=== PATIENT | female | born 1960 | race Caucasian/White ===

== ENCOUNTER → 2018-04-25 14:40 | Outpatient (CLI) | payer OTHER, SELFPAY ==
[2018-05-02 12:44] LABS: HPV Reflexed? NOT INDICATED
== END ==
PROVIDERS: Visit Provider Obstetrics & Gynecology
DX: Z12.4 Encounter for screening for malignant neoplasm of cervix (principal)
CPT/HCPCS: 88175; G0145

== ENCOUNTER → 2018-05-09 10:37 | Outpatient (CLI) | payer OTHER, SELFPAY ==
--- NOTE | 2018-05-09 10:39 | BI_ITS ---
MAMMOGRAPHY - BILATERAL SCREENING REASON FOR EXAM: Female, 57 years old. Routine annual screening examination. PERTINENT HISTORY: Non-contributory. TECHNIQUE: Digital bilateral breast maritza (3D mammographic acquisition) in the CC and MLO projections. 2-D mediolateral oblique (MLO) and craniocaudad (CC) views of both breasts were obtained. CAD: Full Field Digital Mammography with Computer Added Detection was performed. COMPARISON: Comparison is made with prior outside examination of September 21, 2016. FINDINGS: Breast Composition: The breasts are heterogeneously dense, which may obscure small masses. There are no dominant masses or suspicious calcifications. No other significant abnormalities are identified. There has been no significant change since the prior study. BI/SCREENING MAMM (CAD), BILAT IMPRESSION: Stable bilateral screening mammogram. Yearly follow-up mammogram recommended. (A) ASSESSMENT CATEGORY: BIRADS Category 1: Negative. A letter regarding these results will be sent to the patient by the facility within 30 days. Approximately 10% of breast cancers are not detected by mammography. A normal mammogram should not delay biopsy of a clinically suspicious abnormality. [id number] Electronically Signed: Nicolas Sevilla MD at 13:34 EDT Tel [phone], Service support ,
== END ==
PROVIDERS: Family Provider Family Medicine; PCP Family Medicine; Referring Provider Obstetrics & Gynecology; Visit Provider Obstetrics & Gynecology
DX: Z12.31 Encounter for screening mammogram for malignant neoplasm of breast (principal)
CPT/HCPCS: 77063; 77067

== ENCOUNTER → 2018-09-11 11:07 | Outpatient (CLI) | payer OTHER, SELFPAY ==
[2018-09-11 12:26] LABS: Erythrocyte Sedimentation Rate 6 mm/hr (0-30)
[2018-09-11 12:28] LABS: Hematocrit 40.8 % (37-47); Hemoglobin 12.9 g/dl (12.0-15.0); Mean Corp Hgb Conc 31.6 g/gl (32-36); Mean Corpuscular Hgb 30.6 pg (27.0-32.0); Mean Corpuscular Volume 96.9 fL (81-99); Mean Platelet Vol. 11.8 fl (6.2-12.0); Platelet Count 177 K/mm3 (150-450); RBC Distribution Width CV 12.6 % (11.6-14.6); RBC Distribution Width SD 44.2 fl (35.1-43.9); Red Blood Count 4.21 M/mm3 (4.2-5.4); White Blood Count 5.5 K/mm3 (4.4-11.0)
[2018-09-11 12:31] LABS: Scan Indicated on CBC? Y/N NO
[2018-09-11 12:51] LABS: ALB/GLOB Ratio 1.1 RATIO (0.9-2.4); AST(SGOT) 29 U/L (15-37); Alanine Aminotransfer ALT/SGPT 23 U/L (13-56); Albumin, Serum 4.1 g/dL (3.2-5.0); Alkaline Phosphatase 100 U/L (45-117); Anion Gap 9 (5-15); BUN 18 mg/dL (7-18); BUN/Creat Ratio 24.5 RATIO (10-20); CRP < 2.90 mg/L (0.0-3.0); Calcium,Total 9.4 mg/dL (8.5-10.1); Chloride 104 mmol/L (98-107); Creatinine, Serum 0.73 mg/dL (0.55-1.02); EST Glomerular Filtration Rate 86 mL/min (>60); Est Glom Filt Rate - Afr Amer 104 mL/min (>60); Globulin 3.6 g/dL (2.2-4.2); Glucose 91 mg/dL (74-106); Potassium 3.7 mmol/L (3.5-5.1); Protein, Total 7.7 g/dL (6.4-8.2); Sodium Level 142 mmol/L (136-145)
== END ==
PROVIDERS: Family Provider Family Medicine; PCP Family Medicine; Referring Provider Internal Medicine Gastroenterology; Visit Provider Internal Medicine Gastroenterology
DX: K50.90 Crohn's disease, unspecified, without complications (principal); K58.2 Mixed irritable bowel syndrome
CPT/HCPCS: 36415; 80053; 85027; 85652; 86140

== ENCOUNTER → 2019-01-23 14:19 | Outpatient (CLI) | payer OTHER, SELFPAY ==
--- NOTE | 2019-01-23 14:24 | CT_ITS ---
HISTORY: PASSING GAS VAGINALLY X 4 MONTHS, HX CROHNS, HX APPENDECTOMY, COLON RESECTION, CHOLECYSTECTOMY ADDITIONAL HISTORY: None provided. TECHNIQUE: CT images were obtained of the abdomen and pelvis with 75 ml of Isovue 300 IV contrast. Enteric and rectal contrast was given. A radiation dose optimization technique was used for this scan. Number of images including paperwork: [id number] COMPARISON: 08/09/2015 FINDINGS: LOWER THORAX: No consolidation or pleural effusion. LIVER: No concerning focal lesion. GALLBLADDER: No radiopaque calculi. BILE DUCTS: No significant biliary dilatation. SPLEEN: Unremarkable. PANCREAS: Unremarkable. ADRENAL GLANDS: Unremarkable. KIDNEYS/URETERS: Unremarkable. BOWEL: No bowel obstruction. No significant bowel wall thickening. No localized inflammation. APPENDIX: No evidence of appendicitis. FREE FLUID: No significant free fluid. FREE AIR: None. LYMPH NODES: No pathologic appearing adenopathy. PERITONEUM, RETROPERITONEUM AND MESENTERY: Otherwise unremarkable. VASCULATURE: Unremarkable as imaged. PELVIS: Unremarkable bladder. A small amount of air is seen in the vagina which is not particularly remarkable. No definite fistula to the vagina is seen. ABDOMINAL WALL: Unremarkable. OSSEOUS AND SOFT TISSUE STRUCTURES: No acute skeletal findings. CT/Abdomen/Pelvis WITH Contrast IMPRESSION: No acute abdominopelvic abnormality. No definite fistula to the vagina is seen. Individualized dose optimization techniques were used for this CT. at [id number] Reported and signed by: Christelle Hamm MD Electronically Signed: Christelle Hamm MD at 22:44 EDT Tel , Service support ,
[2019-01-23 14:41] LABS: CREATININE FINGERSTICK 0.7 mg/dL (0.55-1.02)
== END ==
PROVIDERS: Referring Provider Internal Medicine Gastroenterology; Visit Provider Internal Medicine Gastroenterology
DX: K50.90 Crohn's disease, unspecified, without complications (principal); L98.8 Other specified disorders of the skin and subcutaneous tissue
CPT/HCPCS: 74177; Q9967

== ENCOUNTER → 2019-05-19 11:48 | Outpatient (CLI) | payer OTHER, SELFPAY ==
--- NOTE | 2019-05-19 11:50 | BI_ITS ---
MAMMOGRAPHY - BILATERAL SCREENING REASON FOR EXAM: Female, 58 years old. Routine annual screening examination. PERTINENT HISTORY: Non-contributory. TECHNIQUE: Digital bilateral breast andrea (3D mammographic acquisition) in the CC and MLO projections. 2-D mediolateral oblique (MLO) and craniocaudad (CC) views of both breasts were obtained. CAD: Full Field Digital Mammography with Computer Added Detection was performed. COMPARISON: Comparison is made with prior study dated May 09, 2018. FINDINGS: Breast Composition: The breasts are heterogeneously dense, which may obscure small masses. There are no dominant masses or suspicious calcifications. No other significant abnormalities are identified. There has been no significant change since the prior study. BI/SCREEN MAMM (CAD) W/ANDREA BILAT IMPRESSION: Stable bilateral screening mammogram. Yearly follow-up mammogram recommended. (A) ASSESSMENT CATEGORY: BIRADS Category 1: Negative. A letter regarding these results will be sent to the patient by the facility within 30 days. Approximately 10% of breast cancers are not detected by mammography. A normal mammogram should not delay biopsy of a clinically suspicious abnormality. [id number] Electronically Signed: Nicolas Sevilla, at 13:16 EST , Service support ,
[2019-05-22 14:08] LABS: Age Gdln ACOG Testing 30-65 (.)
[2019-05-22 18:49] LABS: HPV APTIMA, High Risk Negative (Negative); HPV Reflexed? YES, CHARGE PATIENT
== END ==
PROVIDERS: Referring Provider Obstetrics & Gynecology; Visit Provider Obstetrics & Gynecology
DX: Z12.31 Encounter for screening mammogram for malignant neoplasm of breast (principal); Z12.4 Encounter for screening for malignant neoplasm of cervix; Z78.0 Asymptomatic menopausal state
CPT/HCPCS: 77063; 77067; 87624; 88175; G0145

== ENCOUNTER → 2019-08-25 08:00 | Outpatient (CLI) | payer OTHER, SELFPAY | PROVIDERS: PCP Family Medicine; Referring Provider Internal Medicine Gastroenterology; Visit Provider Internal Medicine Gastroenterology | DX: K50.90 Crohn's disease, unspecified, without complications (principal) | CPT/HCPCS: 36415 ==

== ENCOUNTER → 2020-02-25 14:05 | Outpatient (CLI) | payer OTHER, SELFPAY ==
[2020-02-25 15:09] LABS: EXAGEN MAILED SPECIMEN
[2020-02-25 18:24] LABS: Absolute Lymphocyte Count 0.97 X10^3/uL (0.83-4.51); Absolute Neutrophil Count 3.9 X10^3/uL (2.0-7.7); Basophil# 0.03 X10^3/uL; Basophil% 0.6 % (0-1); Eosinophil# 0.09 X10^3/uL; Eosinophils% 1.7 % (0-5); Hematocrit 41.5 % (37-47); Hemoglobin 12.7 g/dL (12.0-15.0); Lymphocyte # 0.97 X10^3/ul (4.0); Mean Corp Hgb Conc 30.6 g/dL (32-36); Mean Corpuscular Hgb 30.5 pg (27.0-32.0); Mean Corpuscular Volume 99.8 fL (81-99); Mean Platelet Vol. 12.5 fl (6.2-12.0); Monocyte# 0.36 X10^3/uL; Monocyte% 6.7 % (0-10); NRBC Flagged by Analyzer 0 % (0-5); Neutrophil # 3.91 X10^3/uL (2.7-7.7); Neutrophil % 72.6 % (47-70); Platelet Count 193 K/mm3 (150-450); RBC Distribution Width CV 12.3 % (11.6-14.6); RBC Distribution Width SD 45.1 fl (35.1-43.9); Red Blood Count 4.16 M/mm3 (4.2-5.4); White Blood Count 5.4 K/mm3 (4.4-11.0)
[2020-02-25 18:28] LABS: Color, Urine Yellow (Yellow); Glucose, Dipstick Normal (Normal); Ketone-Dipstick Negative (Negative); Leukocyte Esterase-Dipstick Negative /ul (Negative); Nitrite-Dipstick Negative (Negative); Occult Blood-Urine Negative /ul (Negative); Protein-Dipstick Negative (Negative); Specific Gravity, Urine 1.005 (1.002-1.030); Urine Bilirubin Dipstick Negative (Negative); Urine Clarity Clear (Clear); Urine Urobilinogen Normal (Normal)
[2020-02-25 18:37] LABS: Protein, Urine (Random) 8.2 mg/dL (<11.9); Protein:Creat Ratio 328 mg/g CRE (0-200)
[2020-02-25 18:43] LABS: ALB/GLOB Ratio 1.1 RATIO (0.9-2.4); AST(SGOT) 35 U/L (15-37); Alanine Aminotransfer ALT/SGPT 29 U/L (13-56); Alkaline Phosphatase 109 U/L (45-117); Anion Gap 2 (5-15); BUN 14 mg/dL (7-18); BUN/Creat Ratio 19.5 RATIO (10-20); CRP < 2.90 mg/L (0.0-3.0); Calcium,Total 8.8 mg/dL (8.5-10.1); Chloride 105 mmol/L (98-107); Creatinine, Serum 0.72 mg/dL (0.55-1.02); EST Glomerular Filtration Rate 88 mL/min (>60); Est Glom Filt Rate - Afr Amer 106 mL/min (>60); Globulin 3.8 g/dL (2.2-4.2); Glucose 80 mg/dL (74-106); Potassium 3.4 mmol/L (3.5-5.1); Protein, Total 7.8 g/dL (6.4-8.2); Sodium Level 139 mmol/L (136-145)
[2020-02-25 19:01] LABS: Erythrocyte Sedimentation Rate 10 mm/hr (0-30)
[2020-02-26 09:02] LABS: Hepatitis B Surface Antibody Non-Reactive; Hepatitis B Surface Antigen Non-Reactive (Nonreactive); Hepatitis C Antibody Non-Reactive (Nonreactive)
[2020-02-27 13:57] LABS: Hepatitis B Core AB IgM Negative (Negative)
== END ==
PROVIDERS: PCP Family Medicine; Referring Provider Internal Medicine Rheumatology; Visit Provider Internal Medicine Rheumatology
DX: M06.4 Inflammatory polyarthropathy (principal); R76.8 Other specified abnormal immunological findings in serum; K50.90 Crohn's disease, unspecified, without complications; N82.3 Fistula of vagina to large intestine; I10 Essential (primary) hypertension; I49.3 Ventricular premature depolarization; I49.1 Atrial premature depolarization; I34.0 Nonrheumatic mitral (valve) insufficiency; H81.23 Vestibular neuronitis, bilateral; Z79.899 Other long term (current) drug therapy; Z90.5 Acquired absence of kidney
CPT/HCPCS: 36415; 80053; 81002; 82570; 84156; 85025; 85652; 86140; 86705; 86706; 86803; 87340

== ENCOUNTER → 2020-05-21 | Outpatient (CLI) | payer OTHER, SELFPAY ==
[2020-05-26 14:01] LABS: HPV Reflexed? NOT INDICATED
== END | disposition home or self-care (01) ==
PROVIDERS: PCP Family Medicine; Visit Provider Student in an Organized Health Care Education/Training Program
DX: Z12.4 Encounter for screening for malignant neoplasm of cervix (principal)
CPT/HCPCS: 88175; G0145

== ENCOUNTER → 2020-06-10 10:00 | Outpatient (CLI) | payer OTHER, SELFPAY ==
[2020-06-10 12:18] LABS: Color, Urine Yellow (Yellow); Glucose, Dipstick Normal (Normal); Ketone-Dipstick Negative (Negative); Leukocyte Esterase-Dipstick Negative /ul (Negative); Nitrite-Dipstick Negative (Negative); Occult Blood-Urine Negative /ul (Negative); Protein-Dipstick Negative (Negative); Urine Bilirubin Dipstick Negative (Negative); Urine Clarity Clear (Clear); Urine Urobilinogen Normal (Normal)
[2020-06-10 12:19] LABS: Absolute Lymphocyte Count 1.27 X10^3/uL (0.83-4.51); Absolute Neutrophil Count 4.7 X10^3/uL (2.0-7.7); Basophil# 0.05 X10^3/uL; Basophil% 0.8 % (0-1); Eosinophil# 0.05 X10^3/uL; Eosinophils% 0.8 % (0-5); Hemoglobin 12.9 g/dL (12.0-15.0); Lymphocyte # 1.27 X10^3/ul (4.0); Lymphocyte % 19.5 % (19-41); Mean Corp Hgb Conc 31.5 g/dL (32-36); Mean Corpuscular Hgb 31.2 pg (27.0-32.0); Mean Platelet Vol. 12.7 fl (6.2-12.0); Monocyte# 0.48 X10^3/uL; Monocyte% 7.4 % (0-10); NRBC Flagged by Analyzer 0 % (0-5); Neutrophil # 4.65 X10^3/uL (2.7-7.7); Neutrophil % 71.3 % (47-70); Platelet Count 178 K/mm3 (150-450); RBC Distribution Width CV 12.7 % (11.6-14.6); RBC Distribution Width SD 46.2 fl (35.1-43.9); Red Blood Count 4.14 M/mm3 (4.2-5.4); White Blood Count 6.5 K/mm3 (4.4-11.0)
[2020-06-10 12:38] LABS: AST(SGOT) 26 U/L (15-37); Alanine Aminotransfer ALT/SGPT 22 U/L (13-56); Albumin, Serum 3.9 g/dL (3.2-5.0); Alkaline Phosphatase 87 U/L (45-117); Anion Gap 4 (5-15); BUN 18 mg/dL (7-18); Calcium,Total 9.2 mg/dL (8.5-10.1); Chloride 106 mmol/L (98-107); Creatinine, Serum 0.72 mg/dL (0.55-1.02); EST Glomerular Filtration Rate 88 mL/min (>60); Est Glom Filt Rate - Afr Amer 106 mL/min (>60); Globulin 3.9 g/dL (2.2-4.2); Glucose 86 mg/dL (74-106); Potassium 3.8 mmol/L (3.5-5.1); Protein, Total 7.8 g/dL (6.4-8.2); Protein, Urine (Random) 6.4 mg/dL (<11.9); Protein:Creat Ratio 173 mg/g CRE (0-200); Sodium Level 139 mmol/L (136-145)
== END ==
PROVIDERS: PCP Family Medicine; Referring Provider Internal Medicine Rheumatology; Visit Provider Internal Medicine Rheumatology
DX: M06.4 Inflammatory polyarthropathy (principal); R76.8 Other specified abnormal immunological findings in serum; K50.90 Crohn's disease, unspecified, without complications; N82.3 Fistula of vagina to large intestine; I10 Essential (primary) hypertension; I49.3 Ventricular premature depolarization; I34.0 Nonrheumatic mitral (valve) insufficiency; I49.1 Atrial premature depolarization; H81.23 Vestibular neuronitis, bilateral; Z90.5 Acquired absence of kidney; Z79.899 Other long term (current) drug therapy
CPT/HCPCS: 36415; 80053; 81002; 82570; 84156; 85025

== ENCOUNTER → 2020-06-24 14:46 | Outpatient (CLI) | payer OTHER, SELFPAY ==
--- NOTE | 2020-06-24 14:47 | BI_ITS ---
MAMMOGRAPHY - BILATERAL SCREENING REASON FOR EXAM: Female, 59 years old. Routine annual screening examination. PERTINENT HISTORY: Non-contributory. TECHNIQUE: Digital bilateral breast andrea (3D mammographic acquisition) in the CC and MLO projections. 2-D mediolateral oblique (MLO) and craniocaudad (CC) views of both breasts were obtained. CAD: Full Field Digital Mammography with Computer Added Detection was performed. COMPARISON: Comparison is made with prior examination dated 05/19/2019 and 05/09/2018. FINDINGS: Breast Composition: The breasts are heterogeneously dense, which may obscure small masses. There are no dominant masses or suspicious calcifications. No other significant abnormalities are identified. There has been no significant change since the prior study. BI/SCREEN MAMM (CAD) W/ANDREA BILAT IMPRESSION: Stable bilateral screening mammogram. Yearly follow-up mammogram recommended. (A) ASSESSMENT CATEGORY: BIRADS Category 1: Negative. A letter regarding these results will be sent to the patient by the facility within 30 days. Approximately 10% of breast cancers are not detected by mammography. A normal mammogram should not delay biopsy of a clinically suspicious abnormality. [id number] Electronically Signed: Nicolas Sevilla, at 15:44 EST , Service support ,
--- NOTE | 2020-06-24 14:54 | BD_ITS ---
STUDY: DUAL ENERGY X-RAY ABSORPTIOMETRY / DXA REASON FOR EXAM: Female, 59 years old. [employer] -- TAKES STEROID MEDS NEEDED FOR CROHN''S -- DOES MODERATE AMOUNT OF EXERCISE -- FAMILY HX OF OSTEO- MOTHER -- HX OF FOOT FX -- NO WINTER TECHNIQUE: Bone Mineral Density (BMD) measurements of lumbar spine and bilateral hips were obtained. COMPARISON: Comparison is made with prior study dated 02/04/2009. FINDINGS: Lumbar Spine (L1-L4): g/cm2 (0.972) / T-score (-1.7) / Z-score (-0.4) Findings are suggestive of osteopenia with a moderate fracture risk. Left Femur Total: g/cm2 (0.687) / T-score (-2.5) / Z-score (-1.5) Left Femoral Neck: g/cm2 (0.695) / T-score (-2.5) / Z-score (-1.2) Right Femur Total: g/cm2 (0.671) / T-score (-2.7) / Z-score (-1.7) Right Femoral Neck: g/cm2 (0.717) / T-score (-2.3) / Z-score (1.0) The T-Scores on the most recent prior examination were: Lumbar Spine (L1-L4): There has been worsening of bone density since the previous examination. Left Femur Total: which represents a worsening of 10.5%. Right Femur Total: which represents a worsening of 14.5%. BD/Dexa Bone Density Study IMPRESSION: The patient is considered osteoporotic as outlined below according to World Randall Organization (WHO) criteria with a high fracture risk. There has been worsening of bone density since the previous examination. Reference Information: The T-score is the number of standard deviations above or below the standard which is normal for young adults at their peak bone mineral density. The World Health Organization (WHO) interprets the T-scores as follows: Above -1 Normal bone density Between -1 and -2.5 Osteopenia Equal to / or below -2.5 Osteoporosis As a practical clinical guideline, osteopenia may be graded as follows: Mild -1 through -1.5 Moderate -1.6 through -2.0 Severe -2.1 through -2.4 The Z-score is the number of standard deviations above or below age-matched controls. A Z-score of less than -1.5 would be considered abnormal. References: 1. NIH Osteoporosis and Related Bone Diseases www osteo.org 2. International Society for Clinical Densitometry www iscd.org 3. National Osteoporosis Foundation www nof.org Electronically Signed: Nicolas Sevilla, at 15:49 EST , Service support ,
== END ==
PROVIDERS: PCP Family Medicine; Referring Provider Student in an Organized Health Care Education/Training Program; Visit Provider Student in an Organized Health Care Education/Training Program
DX: Z12.31 Encounter for screening mammogram for malignant neoplasm of breast (principal); M81.0 Age-related osteoporosis without current pathological fracture; K50.90 Crohn's disease, unspecified, without complications; Z78.0 Asymptomatic menopausal state
CPT/HCPCS: 77063; 77067; 77080

== ENCOUNTER → 2020-08-30 | Outpatient (CLI) | payer BC, SELFPAY ==
[2020-09-01 12:16] LABS: HPV APTIMA, High Risk Negative (Negative)
== END | disposition home or self-care (01) ==
LOC: LABSPEC 12:01
PROVIDERS: PCP Family Medicine; Visit Provider Student in an Organized Health Care Education/Training Program
DX: R87.615 Unsatisfactory cytologic smear of cervix (principal)
CPT/HCPCS: 87624; 88175; G0145

== ENCOUNTER → 2021-03-04 08:37 | Outpatient (CLI) | payer BC, SELFPAY ==
[2020-12-23 09:59] VITALS: BMI 22.2
--- NOTE | 2021-03-04 10:40 | NEURO ---
NCS and/or EMG Patient Report Ordering Doctor: Vini Haley DATE OF SERVICE: 03/04/21 Indication: Progressive burning sensation in both legs that has more recently begun to affect the hands. Evaluate for peripheral polyneuropathy. Findings: Nerve conduction studies were performed in the right upper and lower extremity. The right median motor study recording the abductor pollicis brevis showed a normal amplitude, normal distal latency and normal conduction velocity. The right ulnar motor study recording the abductor digiti minimi showed a normal amplitude, normal distal latency and normal conduction velocity. No conduction block or focal slowing was present across the elbow. The right median sensory response recording digit two showed a normal amplitude, latency and conduction velocity. The right ulnar sensory response recording digit five showed a normal amplitude, latency and conduction velocity. The right radial sensory response recording over the extensor snuff box showed a normal amplitude, latency and conduction velocity. The right peroneal motor study recording the extensor digitorum brevis showed a normal amplitude, normal distal latency and normal conduction velocity. No conduction block or focal slowing was present across the fibular neck. The right tibial motor study recording the abductor hallucis brevis showed a normal amplitude, normal distal latency and normal conduction velocity. Right sural sensory response showed a normal amplitude and conduction velocity. Right superficial peroneal sensory response showed a normal amplitude and conduction velocity. Needle EMG of the right upper and lower extremity muscles was performed. No denervation was present in any muscle. Motor unit morphology, activation, and recruitment patterns were normal. Examination of the left extremities was not performed given the symmetric nature of the patient's symptoms and the paucity of findings on the right side. Impression: There is no electrophysiologic evidence of a large fiber peripheral polyneuropathy. However, routine electrodiagnostic studies may be insensitive in detecting a peripheral neuropathy restricted to small fibers alone (pain, temperature and autonomic fibers). If such a condition is clinically suspected, additional testing (e.g. QSART, TST, skin biopsy) is recommended. Chetan Treadwell D.O.
== END ==
PROVIDERS: PCP Family Medicine; Referring Provider Psychiatry & Neurology Neurology; Visit Provider Psychiatry & Neurology Neurology
DX: G62.9 Polyneuropathy, unspecified (principal)
CPT/HCPCS: 95885; 95886; 95912

== ENCOUNTER → 2022-01-26 | Outpatient (CLI) | payer OTHER, SELFPAY ==
--- NOTE | 2022-01-26 11:55 | BI_ITS ---
MAMMOGRAPHY - BILATERAL SCREENING REASON FOR EXAM: Female, 61 years old. Routine annual screening examination. PERTINENT HISTORY: Non-contributory. TECHNIQUE: Digital bilateral breast andrea (3D mammographic acquisition) in the CC and MLO projections. 2-D mediolateral oblique (MLO) and craniocaudad (CC) views of both breasts were obtained. CAD: Full Field Digital Mammography with Computer Added Detection was performed. COMPARISON: Comparison is made with prior study dated 06/24/2020 and 05/19/2019. FINDINGS: Breast Composition: The breasts are heterogeneously dense, which may obscure small masses. There are no dominant masses or suspicious calcifications. No other significant abnormalities are identified. There has been no significant change since the prior study. BI/SCRN MAMM (CAD)W/ANDREA BILAT IMPRESSION: Stable bilateral screening mammogram. Yearly follow-up mammogram recommended. (A) ASSESSMENT CATEGORY: BIRADS Category 1: Negative. A letter regarding these results will be sent to the patient by the facility within 30 days. Approximately 10% of breast cancers are not detected by mammography. A normal mammogram should not delay biopsy of a clinically suspicious abnormality. [id number] Electronically Signed: Nicolas Sevilla MD at 12:30 EDT ,
== END | disposition home or self-care (01) ==
LOC: OPBI 11:48
PROVIDERS: PCP Family Medicine; Visit Provider Obstetrics & Gynecology
DX: Z12.31 Encounter for screening mammogram for malignant neoplasm of breast (principal)
CPT/HCPCS: 77063; 77067

== ENCOUNTER → 2022-06-29 | Outpatient (CLI) | payer OTHER, SELFPAY ==
--- NOTE | 2022-06-29 10:32 | BD_ITS ---
STUDY: DUAL ENERGY X-RAY ABSORPTIOMETRY / DXA REASON FOR EXAM: Female, 61 years old. Osteoporosis TECHNIQUE: Bone Mineral Density (BMD) measurements of lumbar spine and bilateral hips were obtained. COMPARISON: Comparison is made with prior study dated 06/24/2020. FINDINGS: Lumbar Spine (L1-L4): g/cm2 (0.808) / T-score (-2.2) / Z-score (-0.5) Findings are suggestive of osteopenia with a high fracture risk. Left Femur Total: g/cm2 (0.658) / T-score (-2.3) / Z-score (-1.2) Left Femoral Neck: g/cm2 (0.513) / T-score (-3.0) / Z-score (-1.6) Right Femur Total: g/cm2 (0.646) / T-score (-2.4) / Z-score (-1.3) Right Femoral Neck: g/cm2 (0.542) / T-score (-2.8) / Z-score (-1.3) The T-Scores on the most recent prior examination were: Lumbar Spine (L1-L4): There has been worsening of bone density since the previous examination. Left Femur Total: which represents an improvement of 4.4%. Right Femur Total: which represents an improvement of 5.2%. BD/Dexa Bone Density Study IMPRESSION: The patient is considered osteoporotic as outlined below according to World Randall Organization (WHO) criteria with a high fracture risk. There has been improvement of bone density since the previous examination. Reference Information: The T-score is the number of standard deviations above or below the standard which is normal for young adults at their peak bone mineral density. The World Health Organization (WHO) interprets the T-scores as follows: Above -1 Normal bone density Between -1 and -2.5 Osteopenia Equal to / or below -2.5 Osteoporosis As a practical clinical guideline, osteopenia may be graded as follows: Mild -1 through -1.5 Moderate -1.6 through -2.0 Severe -2.1 through -2.4 The Z-score is the number of standard deviations above or below age-matched controls. A Z-score of less than -1.5 would be considered abnormal. References: 1. NIH Osteoporosis and Related Bone Diseases www osteo.org 2. International Society for Clinical Densitometry www iscd.org 3. National Osteoporosis Foundation www nof.org Electronically Signed: Nicolas Sevilla MD at 9:33 EST ,
== END | disposition home or self-care (01) ==
LOC: OPBD 10:22
PROVIDERS: PCP Family Medicine; Referring Provider Obstetrics & Gynecology; Visit Provider Obstetrics & Gynecology
DX: M81.0 Age-related osteoporosis without current pathological fracture (principal)
CPT/HCPCS: 77080

== ENCOUNTER → 2023-03-15 | Outpatient (CLI) | payer OTHER, SELFPAY ==
--- NOTE | 2023-03-15 10:05 | BI_ITS ---
MAMMOGRAPHY - BILATERAL SCREENING REASON FOR EXAM: Female, 62 years old. Routine annual screening examination. PERTINENT HISTORY: Non-contributory. TECHNIQUE: Digital bilateral breast andrea (3D mammographic acquisition) in the CC and MLO projections. 2-D mediolateral oblique (MLO) and craniocaudad (CC) views of both breasts were obtained. CAD: Full Field Digital Mammography with Computer Added Detection was performed. COMPARISON: Comparison is made with prior study dated January 26, 2022 and June 24, 2020. FINDINGS: Breast Composition: The breasts are heterogeneously dense, which may obscure small masses. There are no dominant masses or suspicious calcifications. No other significant abnormalities are identified. There has been no significant change since the prior study. BI/SCRN MAMM (CAD)W/ANDREA BILAT IMPRESSION: Stable bilateral screening mammogram. Yearly follow-up mammogram recommended. (A) ASSESSMENT CATEGORY: BIRADS Category 1: Negative. A letter regarding these results will be sent to the patient by the facility within 30 days. Approximately 10% of breast cancers are not detected by mammography. A normal mammogram should not delay biopsy of a clinically suspicious abnormality. [id number] Electronically Signed: Nicolas Sevilla MD at 13:33 EDT ,
== END | disposition home or self-care (01) ==
PROVIDERS: PCP Family Medicine; Referring Provider Obstetrics & Gynecology; Visit Provider Obstetrics & Gynecology
DX: Z12.31 Encounter for screening mammogram for malignant neoplasm of breast (principal)
CPT/HCPCS: 77063; 77067

== ENCOUNTER → 2023-04-04 | Outpatient (CLI) | payer OTHER, SELFPAY ==
--- NOTE | 2023-04-04 10:15 | VUL_PTH ---
PATIENT: FAVIAN HALLMAN LOC: [facility] U#:[id number] AGE/SX: 62/F ROOM: RE04/04/[address]: Dr. Caitlin Veloz DO : 1960 BED: DIS: 04/04/2023 SPEC #: [id number] RECD: 04/04/23 11:41 STATUS: JANELLE LINARES #: [id number] DEVON: 04/04/23 10:[address]: Caitlin Veloz DEPT: SURGICAL PATHOLOGY RECD BY: Shayy Burrows ENTERED: 04/04/23 13:12 SP TYPE: VULVA BX OTHR DR: Dr. Abby Solomon MD Tissues: Vulva, NOS Procedures: Surgery Specimen Level IV HEADER OPERATION: Vulvar biopsy PRE-OP DIAGNOSIS: Vulvar pain TISSUE SUBMITTED: Left labial majora MICROSCOPIC DIAGNOSIS Left labial majora, biopsy: A piece of squamous mucosa with acanthosis, hyperkeratosis and reactive changes. Negative for dysplasia or malignancy. See comment. SJ:leonard 04/05/2023 COMMENT Clinical correlation and appropriate follow up are necessary. Case has been reviewed in consultation with Dr. Connor who concurs with the above diagnosis. IDC:AM MICROSCOPIC DESCRIPTION Slides are reviewed. GROSS DESCRIPTION Received is one container labeled with the patient's name and not further designated. The specimen consists of a piece of ibarra-white skin measuring 1.0 x 0.2 x 0.1 cm. The entire specimen is submitted in one cassette. / SUSY:leonard 04/04/2023 TC:5 CPT: [id number]
== END | disposition home or self-care (01) ==
LOC: LABSPEC 11:45
PROVIDERS: PCP Family Medicine; Referring Provider Obstetrics & Gynecology; Visit Provider Obstetrics & Gynecology
DX: N90.4 Leukoplakia of vulva (principal)
CPT/HCPCS: 88305

== ENCOUNTER → 2024-03-03 | Outpatient (CLI) | payer MEDICARE, OTHER, SELFPAY ==
[2024-03-03 18:02] LABS: Hematocrit 40.9 % (37-47); Hemoglobin 12.9 g/dL (12.0-15.0); Mean Corp Hgb Conc 31.5 g/dL (32-36); Mean Corpuscular Hgb 29.9 pg (27.0-32.0); Mean Corpuscular Volume 94.7 fL (81-99); Platelet Count 186 K/mm3 (150-450); RBC Distribution Width CV 12.1 % (11.6-14.6); RBC Distribution Width SD 42.4 fl (35.1-43.9); Red Blood Count 4.32 M/mm3 (4.2-5.4); White Blood Count 5.9 K/mm3 (4.4-11.0)
[2024-03-03 18:55] LABS: ALB/GLOB Ratio 1.1 RATIO (0.9-2.4); AST(SGOT) 25 U/L (15-37); Alanine Aminotransfer ALT/SGPT 19 U/L (13-56); Alkaline Phosphatase 113 U/L (45-117); Anion Gap 8 (5-15); BUN 17 mg/dL (7-18); BUN/Creat Ratio 22.5 RATIO (10-20); CRP < 2.90 mg/L (0.0-3.0); Calcium,Total 9.5 mg/dL (8.5-10.1); Chloride 106 mmol/L (98-107); Creatinine, Serum 0.76 mg/dL (0.55-1.02); EST Glomerular Filtration Rate 82 mL/min (>60); Est Glom Filt Rate - Afr Amer 99 mL/min (>60); Globulin 3.5 g/dL (2.2-4.2); Glucose 91 mg/dL (74-106); Potassium 3.6 mmol/L (3.5-5.1); Protein, Total 7.5 g/dL (6.4-8.2); Sodium Level 141 mmol/L (136-145)
== END | disposition home or self-care (01) ==
LOC: MTLAB 14:44
PROVIDERS: PCP Family Medicine; Referring Provider Internal Medicine Gastroenterology; Visit Provider Internal Medicine Gastroenterology
DX: R10.11 Right upper quadrant pain (principal)
CPT/HCPCS: 36415; 80053; 85027; 86140

== ENCOUNTER → 2024-03-31 | Outpatient (CLI) | payer MEDICARE, OTHER, SELFPAY ==
--- NOTE | 2024-03-31 10:24 | BI_ITS ---
MAMMOGRAPHY - BILATERAL SCREENING REASON FOR EXAM: Female, 63 years old. Routine annual screening examination. PERTINENT HISTORY: Non-contributory. TECHNIQUE: Digital bilateral breast andrea (3D mammographic acquisition) in the CC and MLO projections. 2-D mediolateral oblique (MLO) and craniocaudad (CC) views of both breasts were obtained. CAD: Full Field Digital Mammography with Computer Added Detection was performed. COMPARISON: Comparison is made with prior study to March 15, 2023 and January 26, 2022. FINDINGS: Breast Composition: The breasts are heterogeneously dense, which may obscure small masses. There are no dominant masses or suspicious calcifications. No other significant abnormalities are identified. There has been no significant change since the prior study. BI/SCRN MAMM (CAD)W/ANDREA BILAT IMPRESSION: Stable bilateral screening mammogram. Yearly follow-up mammogram recommended. (A) ASSESSMENT CATEGORY: BIRADS Category 1: Negative. A letter regarding these results will be sent to the patient by the facility within 30 days. Approximately 10% of breast cancers are not detected by mammography. A normal mammogram should not delay biopsy of a clinically suspicious abnormality. [id number] Electronically Signed: Nicolas Sevilla MD at 12:10 EDT ,
== END | disposition home or self-care (01) ==
LOC: OPBI 10:24
PROVIDERS: PCP Family Medicine; Referring Provider Obstetrics & Gynecology; Visit Provider Obstetrics & Gynecology
DX: Z12.31 Encounter for screening mammogram for malignant neoplasm of breast (principal)
CPT/HCPCS: 77063; 77067

== ENCOUNTER → 2024-10-06 | Outpatient (CLI) | payer MEDICARE, OTHER, SELFPAY ==
--- NOTE | 2024-10-06 13:49 | CT_ITS ---
PROCEDURE: ABDOMEN/PELVIS WITH CONTRAST 10/06/2024 REASON FOR EXAM: CROHNS Abdominal pain. TECHNIQUE: Abdomen and pelvis CT with intravenous contrast. Coronal and Sagittal reconstruction series were provided. PATIENT PREPARATION: Per protocol ORAL CONTRAST TYPE: None. CONTRAST: Isovue 370 VOLUME: 104mL One or more dose reduction techniques were used (e.g., Automated exposure control, adjustment of the mA and/or kV according to patient size, use of iterative reconstruction technique. RADIATION DOSE SUMMARY: CTDlvol: 12 mGy DLP: 1003.33 mGycm COMPARISON: Comparison is made with prior study dated January 23, 2019. FINDINGS: Lung bases: Unremarkable. Liver: Normal size. No mass. Gallbladder: Surgically absent. Spleen: Normal size. Pancreas: Normal size without evidence of mass surrounding inflammation or ductal dilation. Adrenals: Unremarkable Kidneys: Normal renal sizes. No hydronephrosis. Bladder: Mildly distended urinary bladder. Reproductive Organs: Normal uterine size and contour. Ovaries are unremarkable. Bowel: There is evidence of anastomosis at the level of the cecum. Once again, there is fluid-filled/fecal material filled proximal cecum. This measures 5.2 cm in transverse dimension. This is essentially unchanged. Appendix: The appendix is not identified. There is no inflammatory process identified in the right lower quadrant to suggest appendicitis. Lymph nodes: Unremarkable. Vasculature: The abdominal aorta and IVC are normal. Peritoneum / Retroperitoneum: Unremarkable Bones: Unremarkable CT/Abdomen/Pelvis WITH Contrast IMPRESSION: Status post anastomosis at the level of the cecum with stable mild dilatation o f the cecum with fluid and fecal material. Stable examination. Reading Location: [place] [id number]
== END | disposition home or self-care (01) ==
LOC: CT 13:47
PROVIDERS: PCP Family Medicine; Referring Provider Internal Medicine Gastroenterology; Visit Provider Internal Medicine Gastroenterology
DX: K50.90 Crohn's disease, unspecified, without complications (principal)
CPT/HCPCS: 74177; Q9967

== ENCOUNTER → 2025-04-02 | Outpatient (CLI) | payer MEDICARE, OTHER, SELFPAY ==
--- NOTE | 2025-04-02 10:15 | BI_ITS ---
EXAM: SCRN MAMM (CAD)W/ANDREA BILAT DATE: 04/02/2025 CLINICAL HISTORY: F, Age 64 y/o , SCREEN FOR BREAST CANCER TECHNIQUE: Procedure Code: [id number] Modality: MG Procedure: SCRN MAMM (CAD)W/ANDREA BILAT COMPARISON: Prior exam(s) were compared FINDINGS: TISSUE DENSITY: The breasts are heterogeneously dense, which may obscure small masses. Bilateral Breast Mammographic Findings: No suspicious masses, calcifications or other abnormalities are identified. BI/SCRN MAMM (CAD)W/ANDREA BILAT IMPRESSION: No mammographic evidence of malignancy in either breast. OVERALL FINAL ASSESSMENT BI-RADS 1: NEGATIVE. RECOMMENDATION: Routine annual follow-up in 1 Year Additional Recommendation none A letter with findings and recommendations will be mailed to the patient. Reading Location: [id number]
--- OUTSIDE RECORDS SUMMARY | 2025-04-02 10:45 | XMS RPT_ITS | CCD ---
Author Organization [facility] Care Team Providers Care Healthcare Or Medical Name Role Phone Dr. Abby Irby Primary Care Provider [phone] Dr. Abby Irby Referring Provider Dr. Caitlin Veloz Attending Provider [phone] SUREKHA DUMONT, DR CESPEDES Attending Unavailable SUREKHA DUMONT, DR CESPEDES Primary Care Unavailable SUREKHA DUMONT, DR CESPEDES Attending Unavailable SUREKHA DUMONT, DR CESPEDES Primary Care Unavailable SUREKHA DUMONT, DR CESPEDES Attending Unavailable SUREKHA DUMONT, DR CESPEDES Primary Care Unavailable TERRI CRUZ MD Attending Unavailable SUREKHA DUMONT, DR CESPEDES Primary Care Unavailable DORA SELBY Attending Debbie lavinia IRBY MD, DR CESPEDES Primary Care Unavailable DORA SELBY Attending Debbie lavinia IRBY MD, DR CESPEDES Primary Care Unavailable Dr. Abby Irby Primary Care Provider [phone] Dr. Abby Irby Referring Provider JOHNNY Canales Attending Provider [phone] Dr. Abby Irby MD Primary Care Provider [phone] Dr. Tiburcio Pollock MD Attending Provider Dr. Tiburcio Pollock MD Referring Provider Alberto IRBY Consulting Unavailable Alberto IRBY Attending Unavailable Alberto IRBY Admitting Unavailable Alberto IRBY Primary Care Unavailable PROVIDER, UNKNOWN Consulting Unavailable PROVIDER, UNKNOWN Consulting Unavailable PROVIDER, UNKNOWN Consulting Unavailable Alberto IRBY Consulting Unavailable DARELL SUAREZ MD Admitting Unavailable DARELL SUAREZ MD Primary Care Unavailable DARELL SUAREZ MD Attending Unavailable PROVIDER, UNKNOWN Consulting Unavailable PROVIDER, UNKNOWN Consulting Unavailable PROVIDER, UNKNOWN Consulting Unavailable Alberto IRBY Consulting Unavailable Alberto IRBY Referring Unavailable CAITLIN FLORIAN DO Admitting Unavaila ble CAITLIN FLORIAN DO Primary Care Unavaila ble CAITLIN FLORIAN DO Attending Unavaila ble PROVIDER, UNKNOWN Consulting Unavailable PROVIDER, UNKNOWN Consulting Unavailable PROVIDER, UNKNOWN Consulting Unavailable DARELL SUAREZ MD Admitting Unavailable DARELL SUAREZ MD Primary Care Unavailable DARELL SUAREZ MD Attending Unavailable Alberto IRBY Consulting Unavailable PROVIDER, UNKNOWN Consulting Unavailable PROVIDER, UNKNOWN Consulting Unavailable PROVIDER, UNKNOWN Consulting Unavailable Caitlin Veloz Referring UnavailAbby Verduzco Primary Care Unavailable Caitlin Veloz Attending UnavailAbby Verduzco Primary Care Unavailable Tiburcio Pollock Attending Unavailable Tiburcio Pollock Referring Unavailable Caitlin Veloz Attending UnavailAbby Verduzco Primary Care Unavailable Abby Irby Referring Unavailable Allergies Allergy Classification Reported Allergen(s) Allergy Type Date of Onset Reaction(s) Facility (4 sources) Acetaminophen Drug Allergy 05-05-20 [facility] (4 sources) Azithromycin Drug Allergy 05-05-20 [facility] (4 sources) HYDROcodone Drug Allergy 05-05-20 hallucinations [facility] (4 sources) Ibuprofen Drug Allergy 05-05-20 [facility] (4 sources) Sulfamethoxazole Drug Allergy 05-05-20 [facility] (4 sources) Trimethoprim Drug Allergy 05-05-20 [facility] (1 source) Acetaminophen / HYDROcodone Drug Allergy [facility] (1 source) Azithromycin Drug Allergy [facility] (1 source) Ibuprofen Drug Allergy [facility] (1 source) Acetaminophen Drug Allergy 03-31-20 [facility] (1 source) Azithromycin Drug Allergy 03-31-20 [facility] (1 source) HYDROcodone Drug Allergy 03-31-20 [facility] (1 source) Ibuprofen Drug Allergy 03-31-20 [facility] (1 source) Sulfamethoxazole Drug Allergy 03-31-20 [facility] (1 source) Trimethoprim Drug Allergy 03-31-20 [facility] Medications Current Medications Medication Drug Class(es) Dates Sig (Normalized) Sig (Original) acetaminophen 500 mg oral tablet (4 sources) Start: 11-10-2020 take 1 tablet by mouth every six hours as needed Acetaminophen (Tylenol Extra Strength) 500 mg tablet Active 500 mg PO EVERY 6 HOURS as needed November 10, 2020 12:00am aluminum hydroxide 160 mg / magnesium carbonate 105 mg chewable tablet (4 sources) Start: 11-10-2020 Aluminum Hydrox-Magnesium Carb (Gaviscon Extra Strength) 160-105 mg tablet,chewable Active 2 {tbl} PO TWICE A DAY as needed November 10, 2020 12:00am amLODIPine 2.5 mg oral tablet (5 sources) Dihydropyridine Calcium Channel José Antonio Start: 03-31-2024 take 1 tablet by mouth once daily Amlodipine (Norvasc) 2.5 mg tablet Active 2.5 mg PO daily March 31, 2024 12:00am Start: 11-10-2020 End: 03-09-2022 take 1 tablet by mouth once daily Amlodipine 2.5 mg tablet Discontinued 2.5 mg PO DAILY November 10, 2020 12:00am March 09, 2022 1:47pm biotin 5 mg oral capsule (4 sources) Start: 11-10-2020 take 1 capsule by mouth once daily Biotin 5 mg capsule Active 5 mg PO DAILY November 10, 2020 12:00am budesonide 3 mg delayed release oral capsule (7 sources) Corticosteroid Start: 05-05-2021 End: 03-09-2022 take 3 capsules by mouth once daily as needed Budesonide 3 mg capsule,delayed,ex tend.release Active 9 mg PO DAILY as needed March 09, 2022 1:47pm Start: 05-05-2021 End: 03-09-2022 take 9 mg by mouth once daily Budesonide Active 9 MG P O DAILY March 09, 2022 1:47pm calcium carbonate 1500 mg oral tablet (4 sources) Start: 11-10-2020 take 1 tablet by mouth twice daily Calcium Carbonate 600 mg calcium (1,500 mg) tablet Active 600 mg PO TWICE A DAY November 10, 2020 12:00am cholecalciferol 0.025 mg oral capsule (4 sources) Vitamin D Start: 11-10-2020 take 1 capsule by mouth twice daily Cholecalciferol (Vitamin D3) (Vitamin D3) 25 mcg (1,000 unit) capsule Active 25 ug PO TWICE A DAY November 10, 2020 12:00am fexofenadine hydrochloride 180 mg oral tablet (7 sources) Histamine-1 Receptor Antagonist Start: 11-10-2020 End: 03-09-2022 take 1 tablet by mouth once daily as needed Fexofenadine (Diann Allergy) 180 mg tablet Active 180 mg PO DAILY as needed March 09, 2022 1:48pm fluconazole 150 mg oral tablet (3 sources) Azole Antifungal Start: 03-09-2022 take 1 tablet by mouth once daily Fluconazole (Diflucan) 150 mg tablet Active 150 mg PO Every 3 Days 2 March 09, 2022 12:00am take 3 days apart lisinopril 10 mg oral tablet (8 sources) Angiotensin Converting Enzyme Inhibitor Start: 03-31-2024 take 4 tablets by mouth once daily Lisinopril 10 mg tablet Active 40 mg PO DAILY March 31, 2024 9:44am Start: 03-09-2022 End: 03-31-2024 take 2 tablets by mouth once daily Lisinopril 10 mg tablet Discontinued 20 mg PO DAILY March 09, 2022 1:48pm March 31, 2024 9:44am Start: 03-09-2022 take 20 mg by mouth once daily Lisinopril Active 20 MG PO DAILY March 09, 2022 1:48pm Start: 11-10-2020 End: 03-09-2022 take 1 tablet by mouth once daily Lisinopril 10 mg tablet Discontinued 10 mg PO DAILY November 10, 2020 12:00am March 09, 2022 1:49pm pantoprazole 40 mg delayed release oral tablet (3 sources) Proton Pump Inhibitor Start: 03-09-2022 take 1 tablet by mouth once daily Pantoprazole (Protonix) 40 mg tablet,delayed release (DR/EC) Active 40 mg PO DAILY March 09, 2022 12:00am Completed/Discontinued Medications Medication Drug Class(es) Dates Sig (Normalized) Sig (Original) 0.8 ml adalimumab 50 mg/ml prefilled syringe (4 sources) Tumor Necrosis Factor José Antonio Start: 11-10-2020 End: 03-09-2022 Adalimumab (Humira) 40 mg/0.8 mL syringe kit Discontinued 0 SC .COMPLEX November 10, 2020 12:00am March 09, 2022 1:47pm inject one - 40 mg/0.8 mL syringe every 2 weeks subcut Start: 11-10-2020 End: 03-09-2022 Adalimumab (Humira) 40 mg/0. 8 mL syringe kit Discontinued 0 SC .COMPLEX November 10, 2020 12:00am March 09, 2022 1:47pm inject one - 40 mg/0.8 mL syringe every 2 weeks subcut famotidine 40 mg oral tablet (4 sources) Histamine-2 Receptor Antagonist Start: 11-15-2020 End: 03-09-2022 Famotidine 40 mg tablet Discontinued NMA PO November 15, 2020 12:00am March 09, 2022 1:48pm Start: 11-15-2020 End: 03-09-2022 Famotidine Discontinued EACH PO November 15, 2020 12:00am March 09, 2022 1:48pm flecainide acetate 50 mg oral tablet (3 sources) Antiarrhythmic Start: 03-09-2022 End: 03-31-2024 take 1 tablet by mouth every twelve hours Flecainide 50 mg tablet Discontinued 50 mg PO Q12H March 09, 2022 12:00am March 31, 2024 9:43am lidocaine 25 mg/ml / prilocaine 25 mg/ml topical cream (4 sources) Antiarrhythmic, Amide Local Anesthetic Start: 06-09-2021 End: 03-09-2022 Lidocaine-Prilocai ne 2.5-2.5 % cream Discontinued 1 NMA TOPICAL .QID as needed for pain June 09, 2021 1:00am March 09, 2022 1:48pm Start: 06-09-2021 End: 03-09-2022 Lidocaine-Prilocaine Discont inued 1 APPLIC TOPICAL .QID June 09, 2021 1:00am March 09, 2022 1:48pm Mecobal-Levomefolat Ca-B6 Ph os (Foltanx) 3-35-2 mg tablet (8 sources) Start: 06-09-2021 End: 03-09-2022 Mecobal-Levomefolat Ca-B6 Ph os (Foltanx) 3-35-2 mg tablet Discontinued 1 {tbl} PO TWICE A DAY June 09, 2021 2:37pm March 09, 2022 1:48pm Start: 06-09-2021 End: 03-09-2022 take 1 tablet by mouth twice daily Mecobal-Levomefolat Ca-B6 Phos (Foltanx) 3-35-2 mg tablet Discontinued 1 TABLET PO TWICE A DAY 60 June 09, 2021 2:37pm March 09, 2022 1:48pm Start: 06-09-2021 End: 03-09-2022 take 1 tablet by mouth twice daily Mecobal-Levomefolat Ca-B6 Phos (Foltanx) 3-35-2 mg tablet Discontinued 1 TABLET PO TWICE A DAY 60 June 09, 2021 1:37pm March 09, 2022 12:48pm Start: 06-09-2021 take 1 tablet by ashli th twice daily Mecobal-Levomefolat Ca-B6 Phos (Foltanx) 3-35-2 mg tablet Active 1 TABLET PO TWICE A DAY 60 June 09, 2021 2:37pm Start: 12-23-2020 End: 06-09-2021 Mecobal-Levomefolat Ca-B6 Ph os (Foltanx) 3-35-2 mg tablet Discontinued 1 {tbl} PO TWICE A DAY 60 December 23, 2020 12:00am June 09, 2021 2:42pm Start: 12-23-2020 End: 06-09-2021 take 1 tablet by mouth twice daily Mecobal-Levomefolat Ca-B6 Phos (Foltanx) 3-35-2 mg tablet Discontinued 1 TABLET PO TWICE A DAY 60 December 22, 2020 11:00pm June 09, 2021 1:42pm Start: 12-23-2020 End: 06-09-2021 take 1 tablet by mouth twice daily Mecobal-Levomefolat Ca-B6 Phos (Foltanx) 3-35-2 mg tablet Discontinued 1 TABLET PO TWICE A DAY 60 December 23, 2020 12:00am June 09, 2021 2:42pm 24 hr metoprolol succinate 100 mg extended release oral tablet (4 sources) beta-Adrenergic José Antonio Start: 11-10-2020 End: 03-09-2022 take 1 tablet by mouth once daily Metoprolol Succinate 100 mg tablet extended release 24 hr Discontinued 100 mg PO DAILY November 10, 2020 12:00am March 09, 2022 1:48pm Problems Active Problems Problem Classification Problem Date Documented Da te Episodic/Chronic Abdominal pain (2 sources) Female genital organ symptoms; Translations: [Pelvic and perineal pain] 07-27-2022 Episodic Asthma (4 sources) Asthma; Translations: [Unspecified asthma, uncomplicated] 11-10-2020 Chronic Cardiac dysrhythmias (1 source) Atrial fibrillation; Translations: [Unspecified atrial fibrillation] Chronic Deficiency and other anemia (4 sources) Anemia; Translations: [Anemia, unspecified] 11-10-2020 Episodic Esophageal disorders (4 sources) Gastroesophageal reflux disease; Translations: [Gastro-esophageal reflux disease without esophagitis] 11-10-2020 Chronic Essential hypertension (6 sources) Hypertensive disorder; Translations: [Essential (primary) hypertension] Onset: 3 Chronic Genitourinary symptoms and ill-defined conditions (3 sources) Female stress incontinence; Translations: [Stress incontinence (female) (male)] 01-17-2023 Chronic Comment on above: poly montelongo ires to trial this for 3 months, if no improvement would consider PFPT Heart valve disorders (4 sources) Mitral valve prolapse; Translations: [Nonrheumatic mitral (valve) prolapse] 11-10-2020 Chronic Nutritional deficiencies (2 sources) Vitamin D deficiency, unspecified; Translations: [Vitamin D deficiency, unspecified] Onset: 2 Chronic Nutritional deficiencies (4 sources) Vitamin deficiency; Translations: [Vitamin deficiency, unspecified] 11-10-2020 Episodic Osteoarthritis (4 sources) Arthritis; Translations: [Unspecified osteoarthritis, unspecified site] 11-10-2020 Chronic Osteoporosis (4 sources) Osteoporosis; Translations: [Age-related osteoporosis without current pathological fracture] 11-15-2020 Chronic Other aftercare (2 sources) Encounter for therapeutic drug level monitoring; Translations: [Encounter for therapeutic drug level monitoring] Onset: 3 Episodic Other and ill-defined heart disease (4 sources) Heart disease; Translations: [Heart disease, unspecified] 11-10-2020 Chronic Other ear and sense organ disorders (4 sources) Hearing loss; Translations: [Unspecified hearing loss, unspecified ear] 11-10-2020 Chronic Other female genital disorders (1 source) Vulvodynia; Translations: [Vulvodynia, unspecified] 04-04-2023 Chronic Other gastrointestinal disorders (4 sources) History of Crohns disease; Translations: [Personal history of other diseases of the digestive system] 11-10-2020 Episodic Other nervous system disorders (4 sources) Carpal tunnel syndrome; Translations: [Carpal tunnel syndrome, unspecified upper limb] 11-10-2020 Chronic Other nervous system disorders (4 sources) Neuropathy; Translations: [Polyneuropathy, unspecified] 11-10-2020 Chronic Other nervous system disorders (4 sources) Polyneuropathy; Translations: [Polyneuropathy, unspecified] 06-09-2021 Chronic Other nervous system disorders (4 sources) Pain in limb - multiple; Translations: [Paresthesia of skin] 11-15-2020 Episodic Other screening for suspected conditions (not mental disorders or infectious disease) (3 sources) Encounter for screening for lipoid disorders; Translations: [Encounter for screening mammogram for malignant neoplasm of breast] Onset: Episodic Other skin disorders (2 sources) Folliculitis; Translations: [Follicular disorder, unspecified] 01-17-2023 Episodic Other skin disorders (1 source) Follicular disorder, unspecified; Translations: [Other specified diseases of hair and hair follicles] 01-17-2023 Episodic Other upper respiratory disease (4 sources) Seasonal allergy; Translations: [Other seasonal allergic rhinitis] 11-10-2020 Chronic Regional enteritis and ulcerative colitis (1 source) Crohn's disease, unspecified, without complications; Translations: [Crohn's disease, unspecified, without complications] Onset: Chronic Spondylosis; intervertebral disc disorders; other back problems (4 sources) Backache; Translations: [Dorsalgia, unspecified] 11-10-2020 Episodic Systemic lupus erythematosus and connective tissue disorders (4 sources) Lupus erythematosus; Translations: [Systemic lupus erythematosus, unspecified] 11-10-2020 Chronic Past or Other Problems Problem Classification Problem Date Documented Da te Episodic/Chronic Genitourinary symptoms and ill-defined conditions (2 sources) Frequency of micturition; Translations: [Frequency of micturition] Onset: 07-21-2022 Episodic Urinary tract infections (2 sources) Urinary tract infection, site not specified; Translations: [Urinary tract infection, site not specified] Onset: 07-14-2022 Episodic Results Test Name Value Interpretation Reference Range Facil ity TSH W/ REFLEX TO FREE T4on 0 03-10-2025 TSH Qn 0.72 m[IU]/L Normal 0.34 - 5.60 [facility] Comment on above: Performed By: #### 2 [id number] #### [facility],[address] [place] [address] Abdomen/Pelvis WITH Contrast on 10-06-2024 Abdomen/Pelvis WITH Contrast [facility] [address] [place] [address] [id number] Abdomen/Pelvis WITH Contrast MR#: [id number] Acct: [id number] Name: FAVIAN HALLMAN Rep #: [id number] : 1960 F 63 From: Nicolas zamora MD PCP: Dr. Abby Irby MD Status: REG CLI Study: Abdomen/Pelvis WITH Contrast Date of Exam: Exam# [id number] Ordering Dr: Tiburcio Pollock MD PROCEDURE: ABDOMEN/PELVIS WITH CONTRAST 10/06/2024 REASON FOR EXAM: CROHNS Abdominal pain. TECHNIQUE: Abdomen and pelvis CT with intravenous contrast. Coronal and Sagittal reconstruction series were provided. PATIENT PREPARATION: Per protocol ORAL CONTRAST TYPE: None. CONTRAST: Isovue 370 VOLUME: 104mL One or more dose reduction techniques were used (e.g., Automated exposure control, adjustment of the mA and/or kV according to patient size, use of iterative reconstruction technique. RADIATION DOSE SUMMARY: CTDlvol: 12 mGy DLP: 1003.33 mGycm COMPARISON: Comparison is made with prior study dated January 23, 2019. FINDINGS: Lung bases: Unremarkable. Liver: Normal size. No mass. Gallbladder: Surgically absent. Spleen: Normal size. Pancreas: Normal size without evidence of mass surrounding inflammation or ductal dilation. Adrenals: Unremarkable Kidneys: Normal renal sizes. No hydronephrosis. Bladder: Mildly distended urinary bladder. Reproductive Organs: Normal uterine size and contour. Ovaries are unremarkable. Bowel: There is evidence of anastomosis at the level of the cecum. Once again, there is fluid- filled/fecal material filled proximal cecum. This measures 5.2 cm in transverse dimension. This is essentially unchanged. Appendix: The appendix is not identified. There is no inflammatory process identified in the right lower quadrant to suggest appendicitis. Lymph nodes: Unremarkable. Vasculature: The abdominal aorta and IVC are normal. Peritoneum / Retroperitoneum: Unremarkable Bones: Unremarkable CT/Abdomen/Pelvis WITH Contrast IMPRESSION: Status post anastomosis at the level of the cecum with stable mild dilatation of the cecum with fluid and fecal material. Stable examination. [facility]: Dr. Abby Irby MD; Dr. Tiburcio Pollock MD [employer] Laser Operator: Signed Normal [facility] GLUCOSEon 04-02-2024 Glucose [Mass/Vol] 84 mg/dL Normal 74 - 106 [facility] Comment on above: Performed By: #### 2 [id number] #### [address] [address] LIPID PROFILEon 04-02-2024 Cholesterol [Mass/Vol] 226 mg/dL Normal 0 - 240 [facility] Comment on above: Performed By: #### 2 [id number] #### [facility],[address] [place] [address] Cholesterol in HDL [Mass/Vol] 113 mg/dL High 40 - 60 [facility] Comment on above: Performed By: #### 2 [id number] #### [facility],[address] [place] [address] Cholesterol in LDL [Mass/Vol] 103 mg/dL Normal 0 - 129 [facility] Comment on above: Performed By: #### 2 [id number] #### [facility],[address] [place] [address] Cholesterol.total/Ch olesterol in HDL [Mass ratio] 2.0 {ratio} Normal 0.0 - 5.0 [facility] Comment on above: Performed By: #### 2 [id number] #### [facility],[address] [place] [address] Lipid 1996 panel Normal [facility] Comment on above: Result Comment: LIPI D PROFILE Performed By: #### 2 [id number] #### [facility],[address] [place] [address] Triglyceride [Mass/Vol] 49 mg/dL Normal 0 - 150 [facility] Comment on above: Performed By: #### 2 [id number] #### [facility],[address] [place] [address] TSHon 04-02-2024 TSH Qn 0.60 m[IU]/L Normal 0.35 - 3.74 [facility] Comment on above: Performed By: #### 2 [id number] #### [facility],[address] [place] [address] VITAMIN D, 25 HYDROXYon 03-10 VitD 39.70 ng/mL Normal 30.00 - 100 [facility] Comment on above: Result Comment: 25-O HD3 indicates both endogenous production and supplementation. 25-OHD2 is an indicator of exogenous sources, such as diet or supplementation. Therapy is based on measurement of Total 25-OHD, with levels <20 ng/mL indicative of Vitamin D deficiency, while levels between 20 ng/mL and 30 ng/mL suggest insufficiency. Optimal levels are >=30ng/mL. Vitamin D, 25-OH D3 Not Established Vitamin D, 25-OH D2 Not Established Performed By: #### 2 [id number] #### [facility],[address] [place] [address] .GFRon 09-25-2022 GFR >60 Normal [facility] ([place]) Comment on above: Result Comment: GFR Population mean for , Non- Americans Ages 20-29 = 116 mL/min/1.73 sq.m. Ages 30-39 = 107 mL/min/1.73 sq.m. Ages 40-49 = 99 mL/min/1.73 sq.m. Ages 50-59 = 93 mL/min/1.73 sq.m. Ages 60-69 = 85 mL/min/1.73 sq.m. Ages 70+ = 75 mL/min/1.73 sq.m. Chronic Kidney Disease: Less than 60 mL/min/1.73 square meters End Stage Renal Disease: Less than 15 mL/min/1.73 square meters Performed By: #### Aruna MAYES, BMP #### [address] [address] GFR Non- >60 Normal [facility] ([place]) Comment on above: Result Comment: GFR Population mean for , Non- Americans Ages 20-29 = 116 mL/min/1.73 sq.m. Ages 30-39 = 107 mL/min/1.73 sq.m. Ages 40-49 = 99 mL/min/1.73 sq.m. Ages 50-59 = 93 mL/min/1.73 sq.m. Ages 60-69 = 85 mL/min/1.73 sq.m. Ages 70+ = 75 mL/min/1.73 sq.m. Chronic Kidney Disease: Less than 60 mL/min/1.73 square meters End Stage Renal Disease: Less than 15 mL/min/1.73 square meters Performed By: #### Aruna MAYES, BMP #### [address] [address] [facility] 09-25-2022 BUN/Creatinine Ratio 19.7 ratio Normal 10.0-22.0 [facility] ([place]) Comment on above: Performed By: #### Aruna MAYES, BMP #### [address] [address] Calcium [Mass/Vol] 9.9 mg/dL Normal 8.7-10.4 [facility] ([place]) Comment on above: Performed By: #### Aruna MAYES, BMP #### [address] [address] Chloride [Moles/Vol] 104 mmol/L Normal 98-110 [facility] ([place]) Comment on above: Performed By: #### Aruna MAYES, BMP #### [address] [address] CO2 [Moles/Vol] 29 mmol/L Normal 22-32 [facility] ([place]) Comment on above: Performed By: #### Aruna MAYES, BMP #### [address] [address] Creatinine [Mass/Vol] 0.71 mg/dL Normal 0.50-1.20 [facility] ([place]) Comment on above: Performed By: #### Aruna MAYES, BMP #### [address] [address] Electrolyte Balance 10.0 mEq/L Normal 4.0-15.0 [facility] ([place]) Comment on above: Performed By: #### Aruna MAYES, BMP #### [address] [address] Glucose [Mass/Vol] 88 mg/dL Normal 82-115 [facility] ([place]) Comment on above: Performed By: #### Aruna MAYES, BMP #### [address] [address] Potassium [Moles/Vol] 4.1 mmol/L Normal 3.5-5.0 [facility] ([place]) Comment on above: Performed By: #### Aruna MAYES, BMP #### [address] [address] Sodium [Moles/Vol] 143 mmol/L Normal 136-145 [facility] ([place]) Comment on above: Performed By: #### Aruna MAYES, BMP #### [address] [address] Urea nitrogen [Mass/Vol] 14.0 mg/dL Normal 8.0-22.0 [facility] ([place]) Comment on above: Performed By: #### Aruna MAYES, BMP #### [address] [address] .GFRon 08-28-2022 GFR >60 Normal [facility] ([place]) Comment on above: Result Comment: GFR Population mean for , Non- Americans Ages 20-29 = 116 mL/min/1.73 sq.m. Ages 30-39 = 107 mL/min/1.73 sq.m. Ages 40-49 = 99 mL/min/1.73 sq.m. Ages 50-59 = 93 mL/min/1.73 sq.m. Ages 60-69 = 85 mL/min/1.73 sq.m. Ages 70+ = 75 mL/min/1.73 sq.m. Chronic Kidney Disease: Less than 60 mL/min/1.73 square meters End Stage Renal Disease: Less than 15 mL/min/1.73 square meters Performed By: #### M G, GFR, BMP, LIPID #### [address] [address] GFR Non- >60 Normal [facility] ([place]) Comment on above: Result Comment: GFR Population mean for , Non- Americans Ages 20-29 = 116 mL/min/1.73 sq.m. Ages 30-39 = 107 mL/min/1.73 sq.m. Ages 40-49 = 99 mL/min/1.73 sq.m. Ages 50-59 = 93 mL/min/1.73 sq.m. Ages 60-69 = 85 mL/min/1.73 sq.m. Ages 70+ = 75 mL/min/1.73 sq.m. Chronic Kidney Disease: Less than 60 mL/min/1.73 square meters End Stage Renal Disease: Less than 15 mL/min/1.73 square meters Performed By: #### M G, GFR, BMP, LIPID #### [address] [address] BMPon 08-28-2022 BUN/Creatinine Ratio 20.8 ratio Normal 10.0-22.0 [facility] ([place]) Comment on above: Performed By: #### M G, GFR, BMP, LIPID #### [address] [address] Calcium [Mass/Vol] 9.7 mg/dL Normal 8.7-10.4 [facility] ([place]) Comment on above: Performed By: #### M G, GFR, BMP, LIPID #### [address] [address] Chloride [Moles/Vol] 101 mmol/L Normal 98-110 [facility] ([place]) Comment on above: Performed By: #### M G, GFR, BMP, LIPID #### [address] [address] CO2 [Moles/Vol] 30 mmol/L Normal 22-32 [facility] ([place]) Comment on above: Performed By: #### M G, GFR, BMP, LIPID #### [address] [address] Creatinine [Mass/Vol] 0.72 mg/dL Normal 0.50-1.20 [facility] ([place]) Comment on above: Performed By: #### M G, GFR, BMP, LIPID #### [address] [address] Electrolyte Balance 10.0 mEq/L Normal 4.0-15.0 [facility] ([place]) Comment on above: Performed By: #### M G, GFR, BMP, LIPID #### [address] [address] Glucose [Mass/Vol] 84 mg/dL Normal 82-115 [facility] ([place]) Comment on above: Performed By: #### M G, GFR, BMP, LIPID #### [place] [address] Potassium [Moles/Vol] 3.9 mmol/L Normal 3.5-5.0 [facility] ([place]) Comment on above: Performed By: #### M G, GFR, BMP, LIPID #### [address] [address] Sodium [Moles/Vol] 141 mmol/L Normal 136-145 [facility] ([place]) Comment on above: Performed By: #### M G, GFR, BMP, LIPID #### [address] [address] Urea nitrogen [Mass/Vol] 15.0 mg/dL Normal 8.0-22.0 [facility] ([place]) Comment on above: Performed By: #### M G, GFR, BMP, LIPID #### [address] [address] LIPIDon 08-28-2022 Cholesterol [Mass/Vol] 205 mg/dL High 50-199 [facility] ([place]) Comment on above: Result Comment: Chol esterol Reference Interval: Less than 200 Desirable 200-239 Borderline high risk 240 and above High risk Performed By: #### M G, GFR, BMP, LIPID #### [address] [address] Cholesterol in HDL [Mass/Vol] 107 mg/dL High 40-59 [facility] ([place]) Comment on above: Performed By: #### M G, GFR, BMP, LIPID #### [address] [address] Cholesterol in LDL [Mass/Vol] 86 mg/dL Normal 0-129 [facility] ([place]) Comment on above: Performed By: #### M G, GFR, BMP, LIPID #### [address] [address] Triglyceride [Mass/Vol] 60 mg/dL Normal 3-149 [facility] ([place]) Comment on above: Performed By: #### M G, GFR, BMP, LIPID #### [address] [address] MGon 08-28-2022 Magnesium [Mass/Vol] 1.8 mg/dL Normal 1.6-2.4 [facility] ([place]) Comment on above: Performed By: #### M G, GFR, BMP, LIPID #### [address] [address] [facility] Calprotectin (Stl) [Mass/Mass] 56.3 mg/kg Abnormal 0-50 [facility] Comment on above: Order Comment: Speci men Type: STOOL SPECIMEN Ordering Facility: [facility] Address: [address] [place] [address] Result Comment: INTE RPRETIVE INFORMATION: Calprotectin, Fecal <50.0 mg/kg : Normal 50.0-120.0 mg/kg: Borderline. Test should be re-evaluated in 4-6 wks. >120.0 mg/kg: Abnormal Performed By: #### 3 8445-3 #### [facility] CLIA [id number] [address] [place] [address] [place] VIDHon 03-23-2022 Vit. D 25-Hydroxy 52.3 ng/mL Normal [facility] ([place]) Comment on above: Result Comment: Spec imen hemolyzed. Results may be affected. Interpretive Values Based on Total 25(OH)D: Severe Deficiency <20 ng/mL Mild to Moderate Deficiency 20-30 ng/mL Optimum Levels 30-100 ng/mL Toxicity Possible >100 ng/mL Performed By: #### V IDH #### [facility] [address] [place] [address] Calprotectin Stl-nton - Calprotectin (Stl) [Mass/Mass] 58.9 mg/kg Abnormal 0-50 [facility] Comment on above: Order Comment: Speci men Type: STOOL SPECIMEN Ordering Facility: [facility] Address: [address] [place] [address] Result Comment: INTE RPRETIVE INFORMATION: Calprotectin, Fecal <50.0 mg/kg : Normal 50.0-120.0 mg/kg: Borderline. Test should be re-evaluated in 4-6 wks. >120.0 mg/kg: Abnormal Performed By: #### 3 8445-3 #### [facility] CLIA [id number] [address] [place] [address] [place] Hemoglobin A1con 06-28-2021 Glucose [Mass/Vol] 114 mg/dL Normal [facility] Comment on above: Performed By: #### H BA1C #### [facility] Routine Lab [facility] [place], [place] [address] HbA1c (Bld) [Mass fraction] 5.6 % Normal 4.3-5.6 [facility] Comment on above: Performed By: #### H BA1C #### [facility] Routine Lab [address] [place] [address] Monoclonal Prot Uron 021 UMPA Result NOMP Normal No M protein is identified. [facility] Comment on above: Performed By: #### U RMPA #### [facility] Immuno Assay [facility] [place], [place] [address] [facility] Staff Review HERRERA Normal [facility] Comment on above: Performed By: #### U RMPA #### [facility] Assay [address] [place] [address] Prot Elect with IFEon 2020 Albumin [Mass/Vol] 4.26 g/dL High 3.37-4.23 [facility] Comment on above: Performed By: #### S EPGRX #### [facility]ine Lab [address] [place], [place] [address] Alpha 1 Globulin 0.26 gm/dL Normal 0.18-0.31 [facility] Comment on above: Performed By: #### S EPGRX #### [facility] Lab [address] [place] [address] Alpha 2 Globulin 0.79 gm/dL Normal 0.52-0.97 [facility] Comment on above: Performed By: #### S EPGRX #### [facility] [address] [place] [address] Beta Globulin 1.03 gm/dL Normal 0.84-1.36 [facility] Comment on above: Performed By: #### S EPGRX #### [facility] Routine Lab [address] [place] [address] Comment NIF Normal [facility] Comment on above: Performed By: #### S EPGRX #### [facility] Routine Lab [address] [place], [place] [address] Gamma Globulin 1.07 gm/dL Normal 0.70-1.44 [facility] Comment on above: Performed By: #### S EPGRX #### [facility] Routine Lab [address] [place] [address] Interpretation NMPD Normal [facility] Comment on above: Performed By: #### S EPGRX #### [facility] Routine Lab [address] [place], [place] [id number] M Protein Location NAPP Normal [facility] Comment on above: Performed By: #### S EPGRX #### [facility] Routine Lab [address] [place], [place] [id number] M Monico Concentratn 0.00 gm/dL Normal 0.00 [facility] Comment on above: Performed By: #### S EPGRX #### [facility] Routine Lab [address] [place], [place] [id number] SPE Staff Review HERRERA Normal [facility] Comment on above: Performed By: #### S EPGRX #### [facility] Routine Lab [address] [place], [place] [id number] Prot Elect with IFEon 2020 Protein [Mass/Vol] 7.4 g/dL Normal 6.3-8.0 [facility] Comment on above: Performed By: #### S EPGRX #### [facility] Routine Lab [address] [place], [place] [address] PHYSICAL THERAPY REPORTon PHYSICAL THERAPY REPORT [facility] [address] PHYSICAL THERAPY REPORT Patient: FAVIAN HALLMAN ELZA HANNA M.D. [id number] F Status: DIS RCR PT Outpatient Physical Therapy Discharge Summary DATE OF VISIT: 07/03/2019 PHYSICIAN: Elza Hanna M.D. Dear Dr. Hanna: As you know, you referred your patient to the [facility] secondary to dizziness. The patient completed 4 therapy visits. She was last seen on 05/20/2019. The patient was independent with her home exercise program. She was instructed to contact us should she have any further need for physical therapy. She has not done so. At this time, we will discharge her chart. Thank you again for the referral of your patient. If you have any further questions, please do not hesitate to contact me here at the [facility]. Report#: Dict ID [id number] / Int ID [id number] cc: Elza Hanna MD Dictated By: ROSAMARIA RICHTER DPT 07/04/19 1150 ____ ROSAMARIA RICHTER DPT CC: ELZA HANNA M.D. << Signature on File>> Reported By: ROSAMARIA RICHTER DPT Signed By: ROSAMARIA RICHTER DPT Tests performed at: [place] [address] Normal [facility] PHYSICAL THERAPY REPORTon PHYSICAL THERAPY REPORT [facility] [address] PHYSICAL THERAPY REPORT Patient: FAVIAN HALLMAN ELZA HANNA M.D. [id number] F Status: REG RCR PT Initial Physical Therapy Evaluation DATE OF VISIT: 04/14/2019 PHYSICIAN: Elza Hanna M.D. PHYSICAL THERAPY DIAGNOSIS: Right vestibular hypofunction. MEDICAL DIAGNOSIS: Dizziness and giddiness, R42. CHIEF COMPLAINT: 1. Dizzy. 2. Nausea. 3. Unsteady. 4. Difficulty performing ADL/IADL. HISTORY: The patient is a 58-year-old female, who presents with an insidious onset of vertigo, nausea , and unsteadiness this past Sunday. She states that she has symptoms when she bends down and has been sleeping more upright. She does experience symptoms fairly constantly throughout the day. She notes that she has been walking into [place] at times. She states that she has meclizine, which she does take, that seems to help. She also has antinausea medication. She has a history of BPPV, but states this feels different. She saw Dr. Hanna's court assistant and was issued a home repositioning maneuver and tapping behind her ear. She notes this has not seemed to help at this point. The patient is not currently working. She has a trip to the [place] planned for the end of April that she would like to try to resolve her symptoms for. PERSONAL FACTORS AND COMORBIDITIES: The patient experienced a sudden hearing loss in her left ear in November. She did not have any vertigo or dizziness at that time. EXAMINATION: Block fixation with the infrared video goggles was applied. [place]-Hallpike test to the right was unremarkable for any vertigo or nystagmus, but the patient did note feeling slightly unsteady. [place]-Hallpike test to the left was unremarkable for any vertigo or nystagmus, but again elicited a slight increase in the symptoms. Hmq-vc-ntaqmm test was unremarkable. Roll test left was unremarkable. Roll test right elicited a slight increase in symptoms more than [place]-Hallpike test. She displayed a slight geotropic nystagmus 1-2 beats. The patient was returned to sitting. MASTOID VIBRATION TESTING: Positive on the left for increased symptoms, but no nystagmus. Positive on the right for severe increase in symptoms and a strong right beating nystagmus. AMBULATION WITH HEAD MOVEMENTS: The patient was severely unsteady and noted significant increase in symptoms with both horizontal and vertical head movements. She had loss of balance multiple times requiring contact guard assist. Spontaneous and gaze evoked nystagmus were unremarkable. She did note slight increase in symptoms. Upon completion of examination, the patient was issued VOR x1 viewing, which she performed here in the clinic. CLINICAL PRESENTATION: The patient displays an evolving clinical presentation with changing characteristics. CLINICAL DECISION MAKING: Moderate complexity based upon the above history and examination. PROBLEM LIST: 1. Right vestibular hypofunction. 2. Dependence with home exercise program. GOALS: 1. The patient will report abolishment of all symptoms in 6 visits. 2. The patient will be independent and compliant with home exercise program in 6 visits. PATIENT STATED GOALS: To alleviate vertigo. PROGNOSIS: Good to achieve physical therapy goals. TREATMENT PLAN: Vestibular rehabilitation therapy, patient education, home exercise program instruction. FREQUENCY AND DURATION: 1-2 times per week for 6 visits. DISCHARGE PLAN: The patient will be discharged upon completion of her physical therapy goals or maximizing her physical therapy progress. Thank you again for the referral of your patient. If you have any further questions, please do not hesitate to contact me here at the [facility]. cc: Elza Hanna MD Dictated By: ROSAMARIA RICHTER DPT 04/16/19 0830 ____ ROSAMARIA RICHTER DPT CC: ELZA HANNA M.D. << Signature on File>> Reported By: ROSAMARIA RICHTER DPT Signed By: ROSAMARIA RICHTER DPT Tests performed at: [place] [address] [facility] CREATon 12-09-2018 Creatinine [Mass/Vol] 0.62 mg/dL Normal 0.50-0.90 [facility] Comment on above: Performed By: #### L 100.0125 #### [facility]ATORY [address] [place] [address] Creatinine [Mass/Vol] > 60 ml/Min/1.73m2 Normal [facility] Comment on above: Performed By: #### L 100.0125 #### [facility] [address] [place] [address] Result Comment: eGFR >= 60 Indicates normal kidney function. * eGFR IS AN ESTIMATE * (AFR [place] = ) (non-AFR AM = NON-) MDRD calculation used in the eGFR should not be used to dose medications. For further limitations of the eGFR please refer to the Physician Website or the National Kidney Disease Education Program website (www.nkdep.nih.gov). Vital Signs Date Time Vital Sign Value Performing Clinician Merlin martel 01-17-2023 13:59-0400 Body height 167.[address] Abby Irby Work Phone: [facility] 01-17-2023 13:47-0400 Body mass index (BMI) [Ratio] 21.2 kg/m2 Dr. Abby Irby Work Phone: [facility] 01-17-2023 13:47-0400 Body weight 59.[address] Abby Irby Work Phone: [facility] 01-17-2023 13:47-0400 Diastolic blood pressure 77 mm[Hg] Dr. Abby Irby Work Phone: [facility] 01-17-2023 13:47-0400 Systolic blood pressure 179 mm[Hg] Dr. Abby Irby Work Phone: [facility] 06-29-2022 10:28-0500 Body height 167.[address] Abby Irby Work Phone: [facility] Work Phone: 03-09-2022 13:53-0400 Body mass index (BMI) [Ratio] 21.2 kg/m2 Dr. Abby Irby Work Phone: [facility] Work Phone: 03-09-2022 13:53-0400 Body weight 59.[address] Abby Irby Work Phone: [facility] Work Phone: 03-09-2022 13:53-0400 Diastolic blood pressure 73 mm[Hg] Dr. Abby Irby Work Phone: [facility] Work Phone: 03-09-2022 13:53-0400 Systolic blood pressure 160 mm[Hg] Dr. Abby Irby Work Phone: [facility] Work Phone: Encounters Encounter Date Encounter Type Care Provider Facility Start: 04-02-2025 ambulatory Caitlin Sanchezty:[facility] Start: 03-19-2025 End: 03-19-2025 ambulatory DARELL SUAREZ [facility] Start: 03-10-2025 End: 03-10-2025 ambulatory Alberto IRBY [facility] Start: 01-12-2025 End: 01-12-2025 ambulatory R ABBY [facility] Start: 10-06-2024 End: 10-06-[address] Abby Irby MD Work Phone: [facility] Work Phone: Start: 10-06-2024 End: 10-06-[address] Tiburcio Pollock MD -Cat Scan, [facility] Work Phone: Start: 10-06-2024 End: 10-06-2024 ambulatory Abby Irby Facility:[facility] Start: 04-02-2024 End: 04-02-20[facility] Start: 03-15-2023 End: 03-15-[address] Abby Irby Work Phone: [facility] Work Phone: Start: 03-15-2023 End: 03-15-[address] Abby Irby Work Phone: [facility] Work Phone: Start: 01-17-2023 End: 01-17-[address] Abby Irby Work Phone: [facility] Work Phone: Start: 10-30-2022 ambulatory TERRI CRUZ MD Facility: A Start: 09-25-2022 End: 09-30-[address] ABBY IRBY MD Facility:A Start: 08-28-2022 End: 09-02-[address] ABBY IRBY MD Facility:A Start: 07-21-2022 End: 07-26-2022 ambulatory DORA SMALLS APRN-AMELIE Facility:A Start: 07-14-2022 End: 07-19-2022 ambulatory DORA SMALLS APRN-AMELIE Facility:A Start: 06-29-2022 End: 12-22-[address] Abby Irby Work Phone: [facility] Work Phone: Start: 06-29-2022 End: 06-29-[address] Abby Irby Work Phone: [facility] Start: 03-23-2022 End: 03-27-[address] ABBY IRBY MD Facility:A Start: 03-09-2022 End: 03-09-[address] Abby Irby Work Phone: [facility] Start: 01-26-2022 End: 01-26-2022 Patient encounter procedure [facility] Procedures Date Procedure Procedure Detail Performing Clinician Start: 10-06-2024 Computed tomography of abdomen and pelvis with contrast Dr. Abby Irby MD Work Phone: Start: 03-15-2023 Screening mammography Nataliia Irby Work Phone: Start: 06-29-2022 Dual energy X-ray absorptiometry Dr. Abby Irby Work Phone: Start: 01-26-2022 Screening mammography Payers Date Payer Category Payer Unknown [id number] 2024 Self-pay [id number] 2024 Medicare [id number] 2024 Unknown [id number] 2022 Unknown [id number] 2014 Unknown [id number] 1960 Unknown [id number] 2.16.8 [id number] 1960 Unknown [id number] 2.16.8 [id number] 1960 Unknown [id number] 2.16.8 [id number] 1958 Unknown [id number] 2.16.8 [id number] 1958 Unknown [id number] 2.16.8 [id number] 1958 Unknown [id number] 2.16.8 [id number] 1958 Unknown [id number] 2.16.8 40.1.890611.3.579.2.651 1958 Unknown [id number] 2.16.8 40.1.733499.3.579.2.651 1960 Unknown [id number] 2.16.8 40.1.434019.3.579.2.651 1958 Unknown [id number] 2.16.8 [id number] Unknown [id number] Unknown [facility] [employer] . [id number] Unknown [id number] 2.16.8 [id number] Unknown [id number] 2.16.8 [id number] Unknown [id number] 2.16.8 [id number] Social History Date Type Detail Facility Start: 06-09-2021 End: 01-17-2023 Tobacco smoking status PAIS Unknown if ever smoked [facility] Start: 11-10-2020 None [facility] Start: 11-10-2020 Homeless [facility] Start: 11-10-2020 Non-smoker [facility] Start: 1960 Sex Assigned At Female [facility] Start: 03-31-2024 Tobacco smoking stat us NHIS Never smoked tobacco (finding) [facility] Start: 10-09-2024 Sex Female (finding) [facility] Radiology Diagnostic study note 10-08-2024 Note Date & Type Note Facility 10-08-2024 Radiology Diagnostic study note [facility] Imaging Services [address] [place], [place] [address] Abdomen/Pelvis WITH Contrast MR#: [id number] Acct: [id number] Name: FAVIAN HALLMAN DORA Rep #: [id number] : 1960 F 63 From: Adi Sevilla MD PCP: Dr. Abby Irby MD Status: REG C LI Study:Abdomen/Pelvis WITH Contrast Date of Ex am: 10/06/24 Exam# [id number] Ordering Dr: Krystle Pollock MD PROCEDURE: ABDOMEN/PELVIS WITH CONTRAST 10/06/2024 REASON FOR EXAM: CROHNS Abdominal pain. TECHNIQUE: Abdomen and pelvis CT with intravenous contrast. Coronal and Sagittal reconstruction series were provided. PATIENT PREPARATION: Per protocol ORAL CONTRAST TYPE: None. CONTRAST: Isovue 370 VOLUME: 104mL One or more dose reduction techniques were used (e.g., Automated exposure control, adjustment of the mA and/or kV according to patient size, use of iterative reconstruction technique. RADIATION DOSE SUMMARY: CTDlvol: 12 mGy DLP: 1003.33 mGycm COMPARISON: Comparison is made with prior study dated January 23, 2019. FINDINGS: Lung bases: Unremarkable. Liver: Normal size. No mass. Gallbladder: Surgically absent. Spleen: Normal size. Pancreas: Normal size without evidence of mass surrounding inflammation or ductal dilation. Adrenals: Unremarkable Kidneys: Normal renal sizes. No hydronephrosis. Bladder: Mildly distended urinary bladder. Reproductive Organs: Normal uterine size and contour. Ovaries are unremarkable. Bowel: There is evidence of anastomosis at the level of the cecum. Once again, there is fluid-filled/fecal material filled proximal cecum. This measures 5.2 cm in transverse dimension. This is essentially unchanged. Appendix: The appendix is not identified. There is no inflammatory process identified in the right lower quadrant to suggest appendicitis. Lymph nodes: Unremarkable. Vasculature: The abdominal aorta and IVC are normal. Peritoneum / Retroperitoneum: Unremarkable Bones: Unremarkable CT/Abdomen/Pelvis WITH Contrast IMPRESSION: Status post anastomosis at the level of the cecum with stable mild dilatation ofthe cecum with fluid and fecal material. Stable examination. Reading Location: [place] [address] CC: Dr. Abby Irby MD; Dr. Tiburcio Pollock MD ~ Cnc Laser Operator: Signed [facility] Clinical Note 07-23-2022 Note Date & Type Note Facility 07-23-2022 Note . MICRO - Microbiology PROCEDURE: Urine Culture [*1] SOURCE: Urine BODY SITE: COLLECTED DATE/TIME: 07/21/2022 10:25 EST RECEIVED DATE/TIME: 07/21/2022 18:58 EST START DATE/TIME: 07/21/2022 18:58 EST FREE TEXT SOURCE: FINAL REPORTS Final Report [] Verified Date/Time/Personnel: 07/23/2022 07:12 EST >100,000 cfu/ml Multiple bacterial morphotypes present. Probable Contamination. Suggest recollection if clinically indicated. PRELIMINARY REPORTS Preliminary Report [] Verified Date/Time/Personnel: 07/22/2022 08:53 EST Culture results pending. Performing Locations *1: This test was performed at: [facility], [address] [place] [address], [address] [place] [address] ([place]) Clinical Note 07-16-2022 Note Date & Type Note Facility 07-16-2022 Note . MICRO - Microbiology PROCEDURE: Urine Culture [*1] SOURCE: Urine BODY SITE: COLLECTED DATE/TIME: 07/14/2022 10:35 EST RECEIVED DATE/TIME: 07/14/2022 19:00 EST START DATE/TIME: 07/14/2022 19:00 EST FREE TEXT SOURCE: FINAL REPORTS Final Report [] Verified Date/Time/Personnel: 07/16/2022 09:23 EST <10,000 cfu/ml. No Significant growth. Sensitivity not indicated. PRELIMINARY REPORTS Preliminary Report [] Verified Date/Time/Personnel: 07/15/2022 12:40 EST No growth to date Performing Locations *1: This test was performed at: [facility], [address] [place] [address], [facility] , [facility] ([place]) Evaluation note Note Date & Type Note Facility Evaluation note No assessment information availa ble [facility] Work Phone: Evaluation note Note Date & Type Note Facility Evaluation note Diagnosis Onset Date Encounter for routine gyneco logical examination noneactive [facility] Work Phone: Evaluation note Note Date & Type Note Facility Evaluation note Diagnosis Onset Date Folliculitis acute Stress bladder incontinence, female acute [facility] Work Phone: Reason for referral (narrative) Note Date & Type Note Facility Reason for referral (narrative) No reason for referral information available [facility] Work Phone: Summary Purpose Family History No Family History Records Found Relationship Condition Age at Onset Recorded Date/T juanita grandfather Alcoholism Unknown Malignant neoplasm Unknown brother Alcoholism Unknown father Angina pectoris Unknown Hemorrhagic disorder Unknown Myocardial infarction 50 Cardiac disease 50 Hyperlipidemia Unknown Cerebrovascular accident (CVA) Unknown mother Anxiety Unknown Arthritis Unknown Hypertension Unknown Osteoporosis Unknown sister Autoimmune disorder Unknown Disorder of intestine Unknown daughter Autoimmune disorder Unknown grandfather Malignant neoplasm Unknown Advance Directives No Advanced Directives Records FoundNo Advanced Directives Records FoundNo Advanced Directives Records FoundNo Advanced Directives Records FoundNo Advanced Directives Records FoundNo Advanced Directives Records Found Chief Complaint and Reason for Visit Chief Complaint SCREENING Chief Complaint Annual ([employer]) OSTEO Reason for Visit Encounter for routin e gynecological examination Chief Complaint vaginal pimple SCREENING Reason for Visit Folliculitis Stress bladder incontinence, female Chief Complaint Admit Date CROHNS *Enterogrpahy* October 06, 2024 1 :45pm Additional Source Comments INFORMATION SOURCE (unrecogn ized section and content) DATE CREATED AUTHOR 07/16/2019 [facility] DATE CREATED AUTHOR AUTHOR'S ORGANIZ ATION 06/29/2021 [facility] DATE CREATED AUTHOR AUTHOR'S ORGANIZ ATION 07/18/2022 [facility] DATE CREATED AUTHOR AUTHOR'S ORGANIZ ATION 11/08/2022 [facility] ([place] DATE CREATED AUTHOR AUTHOR'S ORGANIZ ATION 03/21/2025 [facility] DATE CREATED AUTHOR AUTHOR'S ORGANIZ ATION 04/01/2025 [facility] Goals (unrecognized section and content) Goals may be documented in a n alternate sectionGoals may be documented in an alternate sectionGoals may be documented in an alternate sectionGoals may be documented in an alternate section Care Teams (unrecognized sec tion and content) Team Status: Active Member Role Status Dates LAWSON SHERMAN Family Provider Active Dr. Abby Irby MD Primary Care Provider Active Team Status: Inactive Member Role Status Dates Dr. Abby Irby MD Primary Care Provider, Referring Provider Active Kerrie Everett PERFORMANCE SPECIALIST, PERFORMANCE SPECIALIST-C Active Blank Canales CNM Attending Provider Active Team Status: Inactive Member Role Status Dates Dr. Abby Irby MD Primary Care Provider Active Dr. Caitlin Veloz DO Attending Provider, Refe rring Provider Active Team Status: Active Member Role Status Dates Dr. Abby Irby MD Primary Care Provider Active Team Status: Inactive Member Role Status Dates Dr. Abby Irby MD Primary Care Provider Active Start: October 06, 2024 End: October 06, 2024 Dr. Tiburcio Pollock MD Attending Provider Active Start: October 06, 2024 End: October 06, 2024 Dr. Tiburcio Pollock MD Referring Provider Active Start: October 06, 2024 End: October 06, 2024 FOR RECORDS PERTAINING TO PATIENTS WHO ARE OR HAVE BEEN ENROLLED IN A CHEMICAL DEPENDENCY/SUBSTANCEABUSE PROGRAM, SOME INFORMATION MAY BE OMITTED. This clinical summary was aggregated from multiple sources. Caution should be exercised in using it in the provision of clinical care. This summary normalizes information from multiple sources, and as a consequence, information in this document may materially change the coding, format and clinical context of patient data. In addition, data may be omitted in some cases. CLINICAL DECISIONS SHOULD BE BASED ON THE PRIMARY CLINICAL RECORDS. [employer] provides no warranty or guarantee of the accuracy or completeness of information in this document.
== END | disposition home or self-care (01) ==
LOC: OPBI 09:58
PROVIDERS: PCP Family Medicine; Referring Provider Obstetrics & Gynecology; Visit Provider Obstetrics & Gynecology
DX: Z12.31 Encounter for screening mammogram for malignant neoplasm of breast (principal)
CPT/HCPCS: 77063; 77067

== ENCOUNTER → 2025-04-22 | Outpatient (CLI) | payer MEDICARE, OTHER, SELFPAY ==
--- NOTE | 2025-04-22 08:17 | BD_ITS ---
PROCEDURE: DEXA BONE DENSITY STUDY 04/22/2025 REASON FOR EXAM: OSTEOPOROSIS F, age 64 y/o . Postmenopausal. TECHNIQUE: Procedure Code: BDDBD Modality: DX Procedure: DEXA BONE DENSITY STUDY COMPARISON: June 29, 2022. FINDINGS: BMD and T-SCORES Lumbar spine: 0.799 g/cm2, T-score -2.3 Levels: L1 through L4 Change from prior: Loss of 1%. Left femoral neck: 0.520 g/cm2, T-score -3.0 Femoral neck comparison data not recommended for monitoring change. Left total hip: 0.648 g/cm2, T-score -2.4 Change from prior: Loss of 1.4%. Right femoral neck: 0.574 g/cm2, T-score -2.5 Femoral neck comparison data not recommended for monitoring change. Right total hip: 0.658 g/cm2, T-score -2.3 Change from prior: Improvement of 1.8%. The World Health Organization has defined the following categories based on bone density: Normal bone density: T-score equal to or greater than -1.0 Osteopenia: T-score between -1.0 and -2.5 Osteoporosis: T-score equal to or less than -2.5 FRAX (or Comparable) Fracture Risk Assessment: 10 Year Probability of Fracture: Major Osteoporotic Fracture: 35% Hip Fracture: 12th% (Note: FRAX is not to be reported in setting of normal range bone density, osteoporosis on DEXA, known history of osteoporosis, prior osteoporotic hip or vertebral fracture, or for any patient undergoing pharmacological treatment for bone loss.) The National Osteoporosis Foundation (NOF) recommends pharmacological treatment for patients with a FRAX 10-year risk of 3% or higher for a hip fracture, or 20% or higher for a major osteoporotic fracture, to prevent osteoporosis and reduce fracture risk. The patient does meet the pharmacological treatment recommendations for prevention of osteoporosis. BD/Dexa Bone Density Study IMPRESSION: OSTEOPOROSIS. Recommend follow-up as clinically warranted. Reading Location: [place] [id number]
[2025-04-22 15:14] LABS: Hematocrit 41.5 % (37-47); Hemoglobin 13.4 g/dL (12.0-15.0); Immature Granulocytes Count 0.020 X10^3/uL (0.0-0.0); Mean Corp Hgb Conc 32.3 g/dL (32-36); Mean Corpuscular Volume 95.8 fL (81-99); Mean Platelet Vol. 12.4 fl (6.2-12.0); NRBC Flagged by Analyzer 0 % (0-5); Platelet Count 203 K/mm3 (150-450); RBC Distribution Width CV 12.3 % (11.6-14.6); RBC Distribution Width SD 43.7 fl (35.1-43.9); Red Blood Count 4.33 M/mm3 (4.2-5.4); White Blood Count 6.6 K/mm3 (4.4-11.0)
[2025-04-22 15:38] LABS: AST(SGOT) 23 U/L (<=31); Alanine Aminotransfer ALT/SGPT 13 U/L (<=34); Albumin, Serum 4.6 g/dL (3.4-4.8); Alkaline Phosphatase 96 U/L (35-104); Anion Gap 11 (5-15); BUN 17 mg/dL (4-19); BUN/Creat Ratio 22.6 RATIO (10-20); Calcium,Total 10.0 mg/dL (7.6-11.0); Carbon Dioxide 28.2 mmol/L (21.0-32.0); Chloride 102 mmol/L (98-108); Globulin 2.9 g/dL (2.2-4.2); Glucose 97 mg/dL (70-99); Potassium 4.2 mmol/L (3.3-5.1); Vitamin B12 263 pg/mL (180-914)
[2025-04-22 15:45] LABS: CRP < 3.00 mg/L (0.0-3.0)
== END | disposition home or self-care (01) ==
PROVIDERS: PCP Family Medicine; Referring Provider Obstetrics & Gynecology; Visit Provider Obstetrics & Gynecology
DX: M81.0 Age-related osteoporosis without current pathological fracture (principal); K50.90 Crohn's disease, unspecified, without complications; R73.09 Other abnormal glucose
CPT/HCPCS: 36415; 77080; 80053; 82607; 85025; 86140